=== PATIENT | female | born 1990 | race Caucasian/White ===

== ENCOUNTER → 2016-07-19 | Outpatient (REF) | payer OTHER ==
[~2016-07-19] MED LIST: COLA100C PO; IBUP80TA PO; PERC5TAB6 PO; PRENATALVITAMIN PO
== END ==
LOC: M SFHCLERA 08:31
PROVIDERS: ATTEND Family Medicine
DX: E66.3 Overweight (principal); R10.11 Right upper quadrant pain; Z53.8 Procedure and treatment not carried out for other reasons

== ENCOUNTER → 2016-07-20 | Outpatient (REF) | payer OTHER ==
[2016-07-20 11:26] LABS: MEAN CORPUSCULAR HEMOGLOBIN 24.5 pg (27.0-33.0); MEAN CORPUSCULAR HGB CONC 31.8 g/dl (32.0-36.5); MEAN CORPUSCULAR VOLUME 77.2 fl (80.0-96.0); RED CELL DISTRIBUTION WIDTH 14.1 % (11.5-14.5)
[2016-07-20 11:49] LABS: ALBUMIN 3.8 GM/DL (3.2-5.2); ALBUMIN/GLOBULIN RATIO 1.06 (1.00-1.93); ALKALINE PHOSPHATASE 101 U/L (45-117); ALT/SGPT 29 U/L (12-78); AST/SGOT 13 U/L (15-37); BILIRUBIN,DIRECT < 0.1 MG/DL (0.0-0.2); BILIRUBIN,TOTAL 0.5 MG/DL (0.2-1.0); T UPTAKE 31 % (30-39); THYROXINE (T4) 8.6 UG/DL (4.5-12.0); TOTAL PROTEIN 7.4 GM/DL (6.4-8.2)
== END ==
LOC: M SFHCLERA 08:39
PROVIDERS: ATTEND Family Medicine
DX: E66.3 Overweight (principal); R10.11 Right upper quadrant pain

== ENCOUNTER → 2016-07-20 | Outpatient (CLI) | payer OTHER ==
--- NOTE | 2016-07-20 10:34 | REP ---
Clinical: Right upper quadrant pain status post cholecystectomy. Technique: Real time aguilar scale and color evaluation using curved array transducer. Findings: Liver and pancreas are normal in contour, size, echogenicity without focal hepatic or pancreatic lesions identified. The patient is status post cholecystectomy. There is no biliary ductal dilatation and the common bile duct measures 4 mm diameter. The right kidney is normal in reniform shape and echogenicity without hydronephrosis measuring 11.1 x 4.7 x 4.1 cm. Impression: Status post cholecystectomy. No acute pathology appreciated. Signed by Matthew Daniel MD 07/20/2016 10:26 A
== END ==
LOC: M LRY 08:29
PROVIDERS: ATTEND Family Medicine
DX: R10.11 Right upper quadrant pain (principal); E66.3 Overweight

== ENCOUNTER 2016-11-14 09:06 | Emergency (ER) | payer OTHER ==
[~2016-11-14] VITALS: Ht 165.1 cm; Wt 71.2 kg
[~2016-11-14 09:06] MED LIST changes: -COLA100C PO; +COLA100C3 PO
[2016-11-14] MEDS ORDERED: NS 1,000 ML IV ONE (10:00)
[2016-11-14] MEDS ORDERED: ONDANSETRON 4MG/2ML VIAL (J2405) IV ONE (10:00)
[2016-11-14] MEDS: MORPHINE 4 MG/ML 1ML SYRINGE IV PRN ×2 (10:13→11:01)
[2016-11-14 10:16] LABS: BASO % 0.2 % (0.0-1.0); EOS # 0.1 K/mm3 (0.0-0.50); EOS % 1.8 % (0.0-3.0); LARGE UNSTAINED CELL # 0.2 K/mm3 (0.0-0.4); LARGE UNSTAINED CELL % 2.5 % (0.0-4.0); LYMPH # 1.7 K/mm3 (1.5-6.5); LYMPH % 21.9 % (24.0-44.0); MEAN CORPUSCULAR HEMOGLOBIN 25.3 pg (27.0-33.0); MEAN CORPUSCULAR HGB CONC 32.5 g/dl (32.0-36.5); MEAN CORPUSCULAR VOLUME 77.8 fl (80.0-96.0); MONO # 0.3 K/mm3 (0.0-0.8); MONO % 3.5 % (0.0-5.0); NEUTROPHILS # 5.3 K/mm3 (1.8-7.7); NEUTROPHILS % 70.1 % (36.0-66.0); PLATELET COUNT, AUTOMATED 132 k/mm3 (150-450); RED CELL DISTRIBUTION WIDTH 15.4 % (11.5-14.5); WHITE BLOOD COUNT 7.6 K/mm3 (4.0-10.0)
[2016-11-14 10:24] LABS: ALBUMIN 3.7 GM/DL (3.2-5.2); ALKALINE PHOSPHATASE 96 U/L (45-117); ALT/SGPT 16 U/L (12-78); AMYLASE 42 U/L (25-115); ANION GAP 5 MEQ/L (8-16); AST/SGOT 10 U/L (15-37); BILIRUBIN,DIRECT < 0.1 MG/DL (0.0-0.2); BILIRUBIN,TOTAL 0.3 MG/DL (0.2-1.0); BLOOD UREA NITROGEN 13 MG/DL (7-18); CALCIUM LEVEL 8.7 MG/DL (8.5-10.1); CARBON DIOXIDE LEVEL 26 MEQ/L (21-32); CHLORIDE LEVEL 109 MEQ/L (98-107); CREATININE FOR GFR 0.63 MG/DL (0.55-1.02); GLOMERULAR FILTRATION RATE > 60.0 (>60); GLUCOSE, FASTING 104 MG/DL (70-105); POTASSIUM SERUM 4.2 MEQ/L (3.5-5.1); SODIUM LEVEL 140 MEQ/L (136-145); TOTAL PROTEIN 7.4 GM/DL (6.4-8.2)
[2016-11-14 11:12] LABS: CONTROL LINE HCG INT CTR LINE PRESENT
[2016-11-14] MEDS ORDERED: KETOROLAC 30 MG/ML VIAL (J1885) IV ONE (11:30)
[2016-11-14] MEDS ORDERED: MORPHINE 2 MG/ML 1ML SYRINGE IV PRN (12:00)
--- NOTE | 2016-11-14 13:12 | REP ---
CT ABDOMEN AND PELVIS WITHOUT CONTRAST: CT abdomen and pelvis is performed without oral or IV contrast, with sagittal and coronal reconstruction images. There is a tiny calcified granuloma in the left lower lobe. The liver, spleen, adrenals, pancreas are unremarkable. Left kidney suicidal ideation (SI), homicidal ideation (HI) unremarkable. Right kidney appears mildly enlarged. There is very mild right hydronephrosis. Findings may indicate a recently passed stone as I do not see a renal or ureteral calculus at this time. There is no bladder calculus. Findings of the right kidney could also potentially represent pyelonephritis. There is no abdominal aortic aneurysm. There is no adenopathy. There is no free air or free fluid. There is no evidence of appendicitis. No pelvic mass is seen. IMPRESSION: Mildly enlarged right kidney with minor hydronephrosis. I do not see evidence of renal, ureteral or bladder calculus. Findings may represent a recently passed stone versus pyelonephritis of the right kidney. No evidence of appendicitis. Signed by Domingo Holley MD 11/14/2016 04:56 P
[2016-11-14] MEDS ORDERED: PERCOCET 5MG/325MG TAB PO ONE (13:15)
[2016-11-14] MEDS ORDERED: PERC5TAB6 PO (14:10)
[2016-11-14] MEDS ORDERED: NORCOTAB PO (14:10)
[2016-11-14] MEDS ORDERED: ZOFR4TAB3 PO (14:10)
[2016-11-14] MEDS ORDERED: IBUP600T26 PO (14:13)
[2016-11-14 14:16] VITALS: BP 108/58
== END 2016-11-14 14:24 | disposition home or self-care (01) ==
LOC: EDBD 09:06 → M ED 10:24
DX: N23 Unspecified renal colic (principal); R11.0 Nausea; F17.200 Nicotine dependence, unspecified, uncomplicated
CPT/HCPCS: 36415; 74176; 80048; 80076; 81001; 82150; 83605; 83690; 84703; 85025; 87040; 87086; 87210; 87491; 87591; 93041; 96374; 96375; 96376; 99284; J1885; J2405

== ENCOUNTER → 2016-11-22 | Outpatient (REF) | payer OTHER ==
[~2016-11-22] MED LIST changes: +IBUP600T26 PO; +NORCOTAB PO; +ZOFR4TAB3 PO
== END ==
LOC: M SMT 13:06
PROVIDERS: ATTEND Nurse Practitioner Family
DX: N13.30 Unspecified hydronephrosis (principal)

== ENCOUNTER → 2016-11-27 | Outpatient (CLI) | payer OTHER ==
--- NOTE | 2016-11-27 19:03 | REP ---
Clinical: Follow up hydronephrosis. Technique: Real time aguilar scale ultrasound examination using curved array transducer. Findings: Bilateral kidneys are normal in contour, size, echogenicity, and reniform shape without hydronephrosis, nephrolithiasis, cystic or renal mass lesions. No perinephric fluid collections are identified. Right kidney measures 11.3 x 4.4 x 5.7 cm. Left kidney measures 10.6 x 3.9 x 4.6 cm. Bladder is unremarkable. Impression: Normal renal ultrasound. Previously noted right hydronephrosis resolved. Signed by Matthew Daniel MD 11/27/2016 06:55 P
== END ==
LOC: M RAD 17:47
PROVIDERS: ATTEND Nurse Practitioner Family
DX: N13.30 Unspecified hydronephrosis (principal)

== ENCOUNTER → 2016-12-10 | Outpatient (REF) | payer OTHER | LOC: M SFHCLERA 10:10 | PROVIDERS: ATTEND Physician Assistant | DX: R31.9 Hematuria, unspecified (principal) ==

== ENCOUNTER → 2016-12-25 | Outpatient (REF) | payer OTHER | LOC: M SMT 17:16 | PROVIDERS: ATTEND Nurse Practitioner Family | DX: R10.9 Unspecified abdominal pain (principal) ==

== ENCOUNTER 2017-04-03 03:45 | Emergency (ER) | payer OTHER ==
[~2017-04-03] VITALS: Ht 165.1 cm; Wt 69.5 kg
[~2017-04-03 03:45] MED LIST changes: -COLA100C3 PO; +COLA100C5 PO; +IBUP-1022 PO; -IBUP600T26 PO; +PERC5TAB12 PO; -PERC5TAB6 PO
[2017-04-03 03:51] VITALS: BP 120/71
[2017-04-03] MEDS ORDERED: IBUP80TA PO (03:56)
[2017-04-03] MEDS ORDERED: KETOROLAC 60 MG/2 ML VIAL (J1885) IM ONE (04:30)
[2017-04-03 04:34] LABS: BASO % 0.2 % (0.0-1.0); EOS # 0.2 10^3/uL (0.0-0.50); EOS % 2.5 % (0.0-3.0); IMMATURE GRANULOCYTE % 0.2 % (0-0); LYMPH # 2.8 10^3/uL (1.5-6.5); LYMPH % 34.8 % (24.0-44.0); MEAN CORPUSCULAR HEMOGLOBIN 24.9 pg (27.0-33.0); MEAN CORPUSCULAR HGB CONC 31.9 g/dl (32.0-36.5); MONO # 0.5 10^3/uL (0.0-0.8); MONO % 6.7 % (0.0-5.0); NEUTROPHILS # 4.5 10^3/uL (1.8-7.7); NEUTROPHILS % 55.6 % (36.0-66.0); PLATELET COUNT, AUTOMATED 162 10^3/uL (150-450); RED CELL DISTRIBUTION WIDTH 16.3 % (11.5-14.5); WHITE BLOOD COUNT 8.1 10^3/uL (4.0-10.0)
[2017-04-03 04:58] LABS: CONTROL LINE HCG INT CTR LINE PRESENT
== END 2017-04-03 05:32 | disposition home or self-care (01) ==
LOC: M ED 03:45
DX: N94.4 Primary dysmenorrhea (principal); Z87.891 Personal history of nicotine dependence
CPT/HCPCS: 84703; 85025; 96372; 99282; J1885